=== PATIENT | male | born 1940 | race Caucasian/White ===

== ENCOUNTER 2017-12-09 09:22 | Emergency (ER) | payer MEDICARE, BC ==
[~2017-12-09] VITALS: Ht 172.7 cm; Wt 84.8 kg
[~2017-12-09 09:22] MED LIST: ASPIRIN325; COLCHICINE 0.60.6 M1 PO; DEXAMETHASONE0.75 MG; ETODOLAC; HYDROXYZINE HCL25 M2 PO; INDOMETHACIN SR75 M1 PO; LISINOPRIL10 MG PO; NORCO 5-325 TA1 EACH PO; OMEPRAZOLE20 MG PO; PREDNISONE 20 M20 M1 PO; SULFACETAMIDE 115 ML OP; TRIAM60; ZOCOR; ZOCOR 20 MG TAB20 M1 PO
[2017-12-09 09:29] VITALS: BP 130/72
[2017-12-09 09:55] LABS: MCH 29.9 pg (26.0-34.0); MCHC 34.1 g/dL (28.0-37.0); MCV 87.7 fL (80.0-100.0); MPV 9.5 fl. (7.2-11.1); RBC 5.01 mil/uL (4.50-6.00); RDW-CV 13.2 % (10.5-14.5); WBC 5.5 thou/uL (4.0-11.0)
[2017-12-09 10:05] LABS: APTT 25.9 Seconds (25.0-31.3); INR 1.1; PROTIME 10.9 Seconds (9.20-11.50)
== END 2017-12-09 10:08 | disposition home or self-care (01) ==
LOC: M.ERS 09:22
PROVIDERS: Emergency Medicine Emergency Medical Services
DX: H11.32 Conjunctival hemorrhage, left eye (principal); I10 Essential (primary) hypertension; E78.5 Hyperlipidemia, unspecified; I25.10 Atherosclerotic heart disease of native coronary artery without angina pectoris; M19.90 Unspecified osteoarthritis, unspecified site; M10.9 Gout, unspecified; Z98.61 Coronary angioplasty status; Z88.5 Allergy status to narcotic agent